=== PATIENT | female | born 1995 | race African-American/Black ===

== ENCOUNTER 2017-03-04 12:16 | Emergency (ER) | payer SELFPAY ==
[~2017-03-04] VITALS: Ht 160 cm; Wt 80.9 kg
[~2017-03-04 12:16] MED LIST: NO HOME MEDICATIONS
[2017-03-04 12:28] VITALS: BP 138/84; PULSE 80; TEMP 99.7
== END 2017-03-04 14:11 | disposition home or self-care (01) ==
LOC: COL.ER 12:16
DX: S61.012A Laceration without foreign body of left thumb without damage to nail, initial encounter (principal); W27.2XXA Contact with scissors, initial encounter; Y92.89 Other specified places as the place of occurrence of the external cause

== ENCOUNTER 2020-05-07 10:00 | Emergency (ER) | payer SELFPAY ==
[~2020-05-07] VITALS: Ht 157.5 cm; Wt 69.6 kg
[2020-05-07 10:06] VITALS: BP 123/81; TEMP 97.9
[2020-05-07 10:19] LABS: COLLECTION METHOD CLEAN CATCH
[2020-05-07 10:51] LABS: BASO % 0.6 % (0.0-2.0); EOS # 0.1 (0.0-0.7); EOS % 1.6 % (0-4.0); GRAN # 2.9 (1.4-6.5); GRAN % 55.7 % (42.2-75.2); HEMATOCRIT 40.5 % (37.0-47.0); HEMOGLOBIN 13.3 g/dl (12.5-16.0); LYMPH # 1.7 (1.2-3.4); LYMPH % 32.9 % (20.0-51.0); MEAN CELL VOLUME 89 fl (80.0-100.0); MEAN CORPUSCULAR HEMOGLOBIN 29 pg (27.0-31.0); MEAN CORPUSCULAR HGB CONC 33 g/dl (33.0-37.0); MEAN PLATELET VOLUME 9.6 fl (7.4-10.4); MONO # 0.5 (0.1-0.6); PLATELET COUNT 265 K/mm3 (130-400); RED BLOOD COUNT 4.53 M/mm3 (4.10-5.30); REDCELL DISTRIBUTION WIDTH-CV 12.4 % (11.5-14.5)
[2020-05-07 11:03] LABS: ALANINE AMINOTRANSFERASE 11 U/L (4-34); ALBUMIN 4.3 gm/dL (3.5-5.0); ALKALINE PHOSPHATASE 47 U/L (50-136); ANION GAP 6 mmol/L (7-16); AST,SGOT 19 U/L (15-37); BILIRUBIN,TOTAL 0.6 mg/dL (0.0-1.0); BLOOD UREA NITROGEN 14 mg/dL (7-17); CALCIUM 9.3 mg/dL (8.4-10.2); CARBON DIOXIDE 27 mmol/L (22-30); CHLORIDE 105 mmol/L (98-107); CREATININE, serum 0.84 (0.52-1.25); GLUCOSE 86 mg/dL (74-106); MAGNESIUM 2.1 mg/dL (1.6-2.3); POTASSIUM 4.4 mmol/L (3.4-5.0); SODIUM 139 mmol/L (137-145); TOTAL PROTEIN 7.6 gm/dL (6.4-8.2)
[2020-05-07 11:05] LABS: C-REACTIVE PROTEIN < 0.5 mg/dL (0.0-0.9)
[2020-05-07 12:22] LABS: MUCOUS Present /lpf; PH 5 (5-8); URINE APPEARANCE Turbid; URINE BACTERIA Moderate /hpf; URINE BILIRUBIN Negative (NEGATIVE); URINE BLOOD Negative (NEGATIVE); URINE COLOR Amber; URINE GLUCOSE Negative (NEGATIVE); URINE KETONE Negative (NEGATIVE); URINE LEUKOCYTE ESTERASE Negative (NEGATIVE); URINE NITRATE Negative (NEGATIVE); URINE PROTEIN(semi-quant) Negative (NEGATIVE); URINE RBC None Seen /hpf; URINE UROBILINOGEN Negative (NEGATIVE)
[2020-05-07] MEDS ORDERED: OMNICEF 300MG300 MG PO (12:41)
[2020-05-07 13:25] VITALS: PULSE 75
== END 2020-05-07 13:05 | disposition home or self-care (01) ==
LOC: COL.ER 10:00
PROVIDERS: Emergency Medicine; Physician Assistant
DX: N39.0 Urinary tract infection, site not specified (principal); Z88.0 Allergy status to penicillin; Z32.02 Encounter for pregnancy test, result negative
CPT/HCPCS: J0696; J7030